=== PATIENT | female | born 1945 | race Caucasian/White ===

== ENCOUNTER 2025-03-24 11:00 | Day surgery (SDC) | payer OTHER ==
[2025-03-22 14:03] VITALS: BP 147/71
[~2025-03-24] VITALS: Ht 152.4 cm; Wt 47.2 kg
[~2025-03-24 11:00] MED LIST: ECOTRIN81 MG PO; GLIMEPIRIDE2 MG; GRALISE600 MG PO; MACROBID 100 M100 MG PO; ROSUVASTATIN CAL5 MG PO; ULTRACET PO; VASOTEC10 MG PO
[2025-03-24] MEDS ORDERED: CHLORHEXIDINE GLUCONATE 120 ML BOTTLE TOP ONE (14:00)
[2025-03-24] MEDS ORDERED: CEFAZOLIN SODIUM 1,000 MG VIAL IV SCH (14:00)
[2025-03-24] MEDS ORDERED: MORPHINE SULFATE 2 MG/ML CARTRIDGE IV ONE (15:20)
[2025-03-24] MEDS ORDERED: MORPHINE SULFATE 4 MG/ML VIAL IV ONE (16:05)
== END 2025-03-24 17:20 | disposition home or self-care (01) ==
LOC: CIR.AMB 11:00
PROVIDERS: ATTEND Surgery
DX: D05.12 Intraductal carcinoma in situ of left breast (principal); R92.1 Mammographic calcification found on diagnostic imaging of breast